=== PATIENT | female | born 1960 | race Hispanic/Latino ===

== ENCOUNTER 2017-06-16 10:34 | Outpatient (CLI) | payer OTHER ==
--- NOTE | 2017-06-17 16:10 | Mammography Report ---
BILATERAL DIGITAL SCREENING MAMMOGRAM WITH CAD: 06/16/17 10:34:00 CLINICAL: Routine screening.Breast cancer survivor status post right partial mastectomy and radiation therapy for breast cancer. COMPARISON:06/05/16 FINDINGS: The right breast is heterogeneously dense, which may obscures small masses in the left breast is entirely fatty. Stable right upper outer postsurgical scar with benign dystrophic calcifications. No mass, suspicious architectural distortion or suspicious calcifications. IMPRESSION: No mammographic evidence of malignancy. BI-RADS CATEGORY: 2 -- Benign RECOMMENDATION: Routine mammographic screening in one year. COMMENT: Patient follow-up letters are generated via our [employer] application.
== END 2017-06-16 10:35 | disposition home or self-care (01) ==
LOC: SPVWC 10:34
PROVIDERS: ATTEND Internal Medicine Hematology & Oncology
DX: Z12.31 Encounter for screening mammogram for malignant neoplasm of breast (principal)
CPT/HCPCS: 77067; G0202